=== PATIENT | male | born 2000 | race Caucasian/White ===

== ENCOUNTER 2023-11-17 11:25 | Outpatient (CLI) | payer OTHER ==
--- NOTE | 2023-11-17 13:43 | XRAY Report ---
PROCEDURE: Knee 1-2V RT INDICATIONS: KNEE PAIN, RIGHT TECHNIQUE: 2 views of the knee(s) were acquired. COMPARISON: None. FINDINGS: Bones: No fractures or dislocations. No suspicious bony lesions. Soft tissues: Mild to moderate knee joint effusion. No suspicious soft tissue calcifications or mass es. IMPRESSION: Mild to moderate effusion. No visualized acute fracture or dislocation. However, occult injury cannot be excluded. Recommend short interval imaging follow-up in 7-10 days as clinically indicated for add itional evaluation. Reviewed by: Zakiya Arredondo MD on 11/17/2023 1:42 PM PDT Approved by: Zakiya Arredondo MD on 11/17/2023 1:42 PM PDT Station ID: [id number]
== END 2023-11-17 11:26 | disposition home or self-care (01) ==
LOC: DI.N 11:25
PROVIDERS: ATTEND Physician Assistant Medical
DX: M25.461 Effusion, right knee (principal); M25.561 Pain in right knee

== ENCOUNTER 2024-01-23 12:35 | Outpatient (CLI) | payer OTHER ==
--- NOTE | 2024-01-27 09:01 | MRI Report ---
PROCEDURE: Knee RT WO INDICATIONS: INTERNAL DERANGEMENT TECHNIQUE: Noncontrast sagittal PD fast spin echo and T2 fast spin echo with fat saturation, sagittal 3-D gradie nt sequence with fat saturation; coronal T1 spin echo and PD fast spin echo with fat saturation, and axial PD fast spin echo with fat saturation through the knee. COMPARISON: None. FINDINGS: Image quality: Excellent. There is a bucket-handle type tear involving the patient's lateral meniscus with a flipped medial men iscal fragment. Medial meniscus, ACL and PCL, collateral ligaments, and the extensor mechanism appear within normal l imits. There is some mild chondromalacia involving the articular surfaces of the lateral compartment. Remain kassy of the articular cartilage is intact. There is a small knee joint effusion and small Cuevas's cyst present. Marrow signal is normal. IMPRESSION: 1. Complex bucket handle type tear involving the entire lateral meniscus with a flipped medial menisc al fragment. 2. Mild chondromalacia articular surfaces of the lateral compartment. 3. Small knee joint effusion. 4. Small Cuevas's cyst. Reviewed by: Matteo Barton MD on 01/27/2024 8:59 AM PDT Approved by: Matteo Barton MD on 01/27/2024 8:59 AM PDT Station ID: [id number]
== END 2024-01-23 12:36 | disposition home or self-care (01) ==
LOC: DI 12:35
DX: S83.271A Complex tear of lateral meniscus, current injury, right knee, initial encounter (principal); S83.251A Bucket-handle tear of lateral meniscus, current injury, right knee, initial encounter; M94.261 Chondromalacia, right knee; M25.461 Effusion, right knee; M71.21 Synovial cyst of popliteal space [Baker], right knee